=== PATIENT | male | born 1995 | race Caucasian/White ===

== ENCOUNTER 2020-10-09 18:37 | Emergency (ER) | payer OTHER ==
[2020-10-09 19:26] VITALS: BP 127/74; PULSE 64; TEMP 98.2; BMI 23.0
[2020-10-09] MEDS ORDERED: ACETAMINOPHEN 325 MG TABLET (FP) PO ONE (20:12)
== END 2020-10-09 20:26 | disposition home or self-care (01) ==
LOC: JER 18:37
PROC: 0RSXXZZ Reposition Left Finger Phalangeal Joint, External Approach (ICD-10-PCS; principal; 2020-10-09)
DX: S63.253A Unspecified dislocation of left middle finger, initial encounter (principal); Y99.8 Other external cause status
CPT/HCPCS: 73140-TC-LT-FY; 99283-25